=== PATIENT | male | born 1995 | race Two or more races ===

== ENCOUNTER 2017-02-21 23:20 | Emergency (ER) | payer OTHER ==
[~2017-02-21] VITALS: Ht 182.9 cm; Wt 72.6 kg
[2017-02-22] VITALS: BP 134/96
--- NOTE | 2017-02-22 | Emergency Room Report ---
History of Present Illness General Chief Complaint: Burn/Smoke Inhalation Present Illness HPI Hands broke out this evening. 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 He denies using any decrease others. Usually he started having blisters form on his fingertips. Any started having tingling and to fingertips and arms started turning red. He wiped down his hands with acetone. This did not help. He states that tingling feels also somewhat itchy. He was not exposed to any heat. He denies pain. His last tetanus was when he was 14. Working in [facility]. he states that there is brush that's not cleared in the area. Never had this problem before. He denies any allergies. Note chest pain, shortness of breath, sore throat, throat swelling, nausea, vomiting, diarrhea, dysuria, hematuria. He denies any major medical problems. 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 Nursing Documentation: PMH: Agreed, PSxH: Agreed Review of Systems All Other Systems: negative except mentioned in HPI Physical Exam Vital Signs Date Time Temp Pulse Resp B/P Pulse Ox O2 Delivery O2 Flow Rate FiO2 02/21/17 23:24 98.2 55 16 134/96 98 Room Air Sp02 EP Interpretation: reviewed, normal General Appearance: well appearing, no apparent distress Head: normocephalic, atraumatic Eyes: bilateral eye PERRL, bilateral eye normal inspection ENT: hearing grossly normal, normal voice, moist mucus membranes Neck: full range of motion, supple Respiratory: lungs clear, no respiratory distress, speaking full sentences Cardiovascular #1: regular rate, rhythm Cardiovascular #2: 2+ radial (R), 2+ radial (L) Gastrointestinal: scaphoid Musculoskeletal: gait/station normal, normal range of motion, non-tender Neurologic: alert, normal gait, grossly normal Psychiatric: mood/affect normal Skin: other - punctate blisters/vesicles tips of several fingers with erythema of palms Medical Decision Making Diagnostic Impression: Primary Impression: Contact dermatitis Qualified Codes: L24.9 - Irritant contact dermatitis, unspecified cause Additional Impression: Poison oak dermatitis ER Course Patient presents with rash on his hands. Differential includes contact dermatitis, chemical dermatitis versus betancourt, early cellulitis. The rapidity that this developed is against it being an indolent infection. The appearance is consistent with contact dermatitis. The fact he was working in the [employer] suggest this might be associated with poison oak. However could also be associated with some chemicals he was using. The lack of pain suggests it's not a hydrofluoric acid exposure. Treatment will be with time;. There is no infection at this time. He was advised that if these lesions started to appear infectious that antibiotics be started. Currently will be covering him with topical antibiotics. The patient is stable for outpatient observation and treatment. Last Vital Signs Date Time Temp Pulse Resp B/P Pulse Ox O2 Delivery O2 Flow Rate FiO2 02/22/17 00:31 98.2 60 18 130/96 98 Room Air Status: improved Disposition: HOME, SELF-CARE Condition: Improved Scripts Bacitracin (Bacitracin) 28.4 Gm Oint...g. 1 APPLIC TOPIC BID, #30 GM Prov: Mitch Echavarria M.D. 02/22/17 Triamcinolone Acetonide (TRIAMCINOLONE ACETONIDE) 15 Gm Oint...g. 1 APPLIC TP BID, #30 GM 1 Refill Prov: Mitch Echavarria M.D. 02/22/17 Mitch Echavarria M.D. Feb 22, 2017 00:00
[2017-02-22] MEDS ORDERED: TRIAMCINOLONE A15 G2 TP (00:07)
[2017-02-22] MEDS ORDERED: BACITRACIN15 GM TOPIC (00:07)
[2017-02-22 00:24] VITALS: BP 130/96
[2017-02-22 00:31] VITALS: BP 130/96
== END 2017-02-22 00:32 | disposition home or self-care (01) ==
LOC: EMR 23:59
DX: L24.9 Irritant contact dermatitis, unspecified cause (principal)
CPT/HCPCS: 99282; J8540